=== PATIENT | female | born 1960 | race Caucasian/White ===

== ENCOUNTER 2019-05-31 11:43 | Inpatient (IN) | payer BC ==
[2019-05-28 12:03] LABS: Basophils # (auto) 0.1 uL; Basophils % (auto) 1.3 % (0.0-2.0); Eosinophils # (auto) 0 uL; Eosinophils % (auto) 0.1 % (0.0-7.0); Hematocrit 44.3 % (36.0-46.0); Lymphocytes # (auto) 1.8 uL; Lymphocytes % (auto) 28.2 % (10.0-50.0); Mean Corpuscular Hemoglobin 32.6 pg (28.0-32.0); Mean Corpuscular Hgb Conc. 33.9 g/dL (32.0-36.0); Mean Corpuscular Volume 96.1 fL (80.0-100.0); Monocytes # (auto) 0.5 uL; Monocytes % (auto) 7.3 % (0.0-12.0); Neutrophils # (auto) 4.1 uL; Neutrophils % (auto) 63.1 % (37.0-80.0); Platelet Count (auto) 408 10^3/uL (140-450); Red Blood Cells 4.61 10^6/uL (4.0-5.20); Red Cell Distribution Width 14.6 % (11.8-14.3); White Blood Cell 6.4 10^3/uL (4.4-10.8)
[2019-05-28 12:06] LABS: Urine Bacteria NONE SEEN /hpf (None Seen); Urine Blood Negative /uL (Negative); Urine Specific Gravity 1.011 (1.001-1.035); Urine WBC <1 /hpf (0 - 5)
[2019-05-28 12:17] LABS: INR 0.94 (0.9-1.15); Partial Thromboplastin Time 25.1 sec (23.64-32.05)
[2019-05-28 12:40] LABS: Albumin 4.2 g/dL (3.4-5.0); BUN/Creatinine Ratio 10.7; Bilirubin, Total 0.3 mg/dL (0.2-1.0); Calcium 8.8 mg/dL (8.5-10.1); Total Protein 8.8 g/dL (6.4-8.2)
[~2019-05-31] VITALS: Ht 149.9 cm; Wt 81.3 kg
[~2019-05-31 11:43] MED LIST: CYCL1TAB18 PO; ETOD400T3 PO; GABA-339 PO; TEMA7.5C11 PO; VENL150T19 PO
[2019-05-31] MEDS ORDERED: LIDOCAINE W/ EPINEPHRINE 1% 20ML VIAL ONE (12:50)
[2019-05-31] MEDS ORDERED: LIDOCAINE HCL (LOCAL ANESTH.) 0.5 % 50ML MDV IJ ONE (12:51)
[2019-05-31] MEDS ORDERED: BUPIVACAINE 0.25% INJ 50ML VIAL ONE (12:51)
[2019-05-31] MEDS ORDERED: BUPIVACAINE W/ EPINEPH 0.25% INJ 50ML MDV ONE (12:51)
[2019-05-31] MEDS ORDERED: CLINDAMYCIN 600MG IV 50 ML IV ONE (13:09)
[2019-05-31] MEDS ORDERED: METHYLENE BLUE 0.5% 5MG/ML 10ml AMP IV ONE (13:23)
[2019-05-31] MEDS ORDERED: MIDAZOLAM HCL 1MG/1ML-2 ML VIAL ONE (13:26)
[2019-05-31] MEDS ORDERED: fentaNYL CITRATE 100 MCG/2 ML VL ONE ×3 (13:26→14:18)
[2019-05-31] MEDS ORDERED: ROCURONIUM 10MG/ML 10ML VIAL IV ONE (13:44)
[2019-05-31] MEDS ORDERED: CLINDAMYCIN 900MG IV 50 ML IV ONE (13:45)
[2019-05-31] MEDS ORDERED: ONDANSETRON HCL 4 MG/2 ML VIAL IV PRN ×2 (13:45→15:15)
[2019-05-31] MEDS ORDERED: ACETAMINOPHEN 500 MG TAB PO PRN (13:45)
[2019-05-31] MEDS ORDERED: NITROGLYCERIN 0.4 MG SL TAB SL PRN (13:45)
[2019-05-31] MEDS ORDERED: PROPOFOL 10 MG/ML 20 ML IV ONE (13:46)
[2019-05-31] MEDS ORDERED: HYDROmorphone HCL 2 MG/ML VL ONE ×2 (13:56→15:37)
[2019-05-31] MEDS ORDERED: HYDROmorphone HCL 2 MG/ML VL IV PRN (15:15)
[2019-05-31] MEDS ORDERED: ePHEDrine SULFATE 50 MG/ML AMP IV PRN (15:15)
[2019-05-31] MEDS ORDERED: hydrALAZINE HCL 20 MG/ML VL IV PRN (15:15)
[2019-05-31] MEDS: HYDROmorphone HCL 2 MG/ML VL IV PRN ×3 (15:40→16:00)
[2019-05-31] MEDS ORDERED: ACETAMINOPHEN IV 100 ML IV ONE (15:47)
[2019-05-31] MEDS ORDERED: ACETAMINOPHEN IV 1000 MG/100ML (10MG/ML) IV ONE (15:50)
[2019-05-31] MEDS ORDERED: diphenhdrAMINE HCL 50 MG/1 ML VL ONE (16:04)
[2019-05-31] MEDS ORDERED: diphenhdrAMINE HCL 50 MG/1 ML VL IV ONE (16:05)
[2019-05-31 16:59] VITALS: BP 157/100
[2019-05-31] MEDS: HYDROcodone-ACET 10/325MG TAB PO PRN ×2 (18:25→22:29)
--- NOTE | 2019-05-31 18:25 | NUR ---
ADMIT PATIENT WAS ADMITTED FROM PACU AFTER RECEIVING REPORT FROM NURSE. PATIENT IS ALERT AND ORIENTED. SPOUSE AT BEDSIDE. PATIENT HAS ON ABDOMINAL BINDER. SEVERAL ABDOMINAL INCISIONS FROM SURGERY - DRESSING CLEAN, DRY, INTACT. FIELDS CATHETER DRAINING CLEAR YELLOW URINE. PATIENT PLACED ON 2L O2 VIA NC. PATIENT C/O ITCHING, BENADRYL WAS GIVEN RECENTLY. PROVIDED PATIENT WITH LOTION FOR DRY SKIN. PATIENT IS WEARING CONCETTA HOSE. OCCASIONAL COUGH CAUSES PAIN, EDUCATED PATIENT TO USE A PILLOW OR FOLDED UP BLANKED SUPPORT FOR HER ABDOMEN WHEN COUGHING. NO SKIN ISSUES. 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 SHE IS ABLE TO STAND AND PIVOT ONLY. SHE USES A WHEELCHAIR AT HOME. PRN MEDICATION GIVEN FOR PAIN. NS RUNNING AT 125 ML/HOUR ORDERED.
--- NOTE | 2019-05-31 19:35 | NUR ---
RECEIVED PATIENT FROM DAY SHIFT RN. PATIENT RESTING IN BED. NO S/S OF DISTRESS NOTED. C/O PAIN @ 4/10 AFTER MEDICATION GIVEN EARLIER. REINFORCED SCHEDULE OF PAIN MANAGEMENT. WILL COME BACK FOR PAIN MEDICATION LATER WHEN THE TIME IS DUE AND PER PATIENT REQUESTS. ABD BINDER IN PLACE. DRESSING ON ABD C/D/I. FIELDS CATH IN PLACE DRAINING GRAVITY. PATIENT REFUSED TO BE TURNED NOW AND STATED SHE'S COMFORTABLE. POC INSTRUCTED AND ENCOURAGED PATIENT TO CALL FOR SCHOOL NURSE IF NEEDED. BED IN LOWEST POSITION WITH SIDE RAILS UP X 2. CALL CHERRY WITHIN REACH. ALARM ON. CONTINUE TO MONITOR FOR CHANGES Q1H AND PRN.
[2019-05-31] MEDS: SODIUM CHLORIDE 0.9% 1,000 ML IV SCH (21:33)
[2019-05-31 22:00] VITALS: BP 139/83
--- NOTE | 2019-05-31 22:12 | NUR ---
PATIENT REFUSED TO TURN AND STATED THAT SHE IS COMFORTABLE NOW. CONTINUE TO MONITOR.
[2019-06-01] MEDS: HYDROcodone-ACET 10/325MG TAB PO PRN ×2 (02:26→11:33)
--- NOTE | 2019-06-01 02:31 | NUR ---
MEDICATED PATIENT FOR PAIN @ 05/31. CONTINUE CARE
[2019-06-01] MEDS: SODIUM CHLORIDE 0.9% 1,000 ML IV SCH (03:39)
--- NOTE | 2019-06-01 04:40 | NUR ---
REPOSITIONED PATIENT TO COMFORT. PATIENT TOLERATED WELL. CONTINUE CAR.E
[2019-06-01 05:00] VITALS: BP 154/90
--- NOTE | 2019-06-01 08:00 | NUR ---
Opening Shift Note Assumed care of patient, awake and alert. No S/S of distress/SOB. Instructed on POC and to call for assist PRN, will continue to monitor for changes Q1hr and PRN.
--- NOTE | 2019-06-01 08:25 | NUR ---
D/C Kellogg catheter Removed Kellogg catheter per order. No problems. Patient tolerated well. Will give patient PRN pain medication per request and c/o abdominal pain.
[2019-06-01 09:00] VITALS: BP 128/86
--- NOTE | 2019-06-01 12:00 | NUR ---
Urinating fine Patient has been urinating with no problems since removal of Kellogg catheter this morning. She is using the [facility] [place].
[2019-06-01 13:43] VITALS: BP 149/88
--- NOTE | 2019-06-01 14:12 | NUR ---
Dr. Reilly/Kana to [place] Contacted Dr. Reilly. He said it is fine to discharge the patient at this time. Previous not said possibly after 4 pm today, but he said she is ok to go and see him outpatient. Patient was notified.
--- NOTE | 2019-06-01 14:37 | NUR ---
DISCHARGE WENT OVER DISCHARGE PAPERWORK WITH PATIENT. NO NEW PRESCRIPTIONS. PATIENT DRESSED. AT BEDSIDE. IVS REMOVED, ID BANDS REMOVED. ALL PERSONAL BELONGINGS WENT WITH PATIENT. THIS NURSE ASSISTED PATIENT IN W/C TO PERSONAL VEHICLE.
== END 2019-06-01 14:35 | disposition home or self-care (01) | DRG 743 ==
LOC: SUR 11:43 → EAST 11:44
PROVIDERS: ADMIT Obstetrics & Gynecology; ATTEND Obstetrics & Gynecology
PROC: 0UB64ZZ Excision of Left Fallopian Tube, Percutaneous Endoscopic Approach (ICD-10-PCS; 2019-05-31)
PROC: 8E0W4CZ Robotic Assisted Procedure of Trunk Region, Percutaneous Endoscopic Approach (ICD-10-PCS; 2019-05-31)
PROC: 0UB14ZZ Excision of Left Ovary, Percutaneous Endoscopic Approach (ICD-10-PCS; principal; 2019-05-31 13:27)
DX: N83.202 Unspecified ovarian cyst, left side (principal); R19.00 Intra-abdominal and pelvic swelling, mass and lump, unspecified site; G89.29 Other chronic pain; K66.0 Peritoneal adhesions (postprocedural) (postinfection); Z88.8 Allergy status to other drugs, medicaments and biological substances; Z88.1 Allergy status to other antibiotic agents; Z88.0 Allergy status to penicillin; Z88.2 Allergy status to sulfonamides
CPT/HCPCS: 36415; 80053; 81001; 85025; 85610; 85730; 86850; 86900; 86901; 87086; G0378; J0131; J2250; J2405; J2704; J3490